=== PATIENT | male | born 1955 | race Caucasian/White ===

== ENCOUNTER 2021-10-19 11:46 | Emergency (ER) | payer BC, SELFPAY ==
--- NOTE | ~2021-10-19 | CT_ITS ---
EXAMINATION: CT abdomen pelvis wo con DATE: 10/19/2021 12:44 INDICATION: Right flank pain TECHNIQUE: Computed tomography (CT) of the abdomen and pelvis was performed without intravenous contr ast. Automated exposure control and iterative reconstruction technique were employed. The dose-length product was 454.21 mGy-cm. COMPARISON: None FINDINGS: Mild dependent atelectasis in the lower lobes, right greater than left. Heart size is normal. No mia cardial or pleural effusion. Small amount of aortic valve calcification. Liver, gallbladder, spleen, pancreas and bilateral adrenal glands are normal. There are a couple small splenules along the anteri or margin of the spleen. Kidneys and ureters are normal with no urolithiasis, hydroureteronephrosis o r perinephric/ureteral stranding. Bladder and prostate are normal. There is moderate colonic divertic ulosis with a sigmoid predominance. There is no adjacent inflammatory change to suggest diverticulit is. Small bowel and appendix are normal. No free intraperitoneal gas or fluid. No pathologically enla rged abdominal or pelvic lymphadenopathy. Mild lumbar dextrocurvature with moderate spondylosis at th e lumbosacral junction. IMPRESSION: 1. No acute intra-abdominal/pelvic process. Specifically normal gallbladder and appendix and no uroli thiasis. 2. Diverticulosis. Reviewed, dictated and finalized at location B. IMPRESSION: 1. No acute intra-abdominal/pelvic process. Specifically normal gallbladder and appendix and no urolithiasis. 2. Diverticulosis.
--- NOTE | ~2021-10-19 | XR_ITS ---
EXAMINATION: XR abdomen/kub 1V DATE: 10/19/2021 13:43 INDICATION: Right flank pain. TECHNIQUE: A supine view of the abdomen was obtained. COMPARISON: CT abdomen and pelvis 10/19/2021 FINDINGS: There are no dilated loops of bowel. There is a small volume of stool in the colon. There i s no urolithiasis. IMPRESSION: 1. Normal bowel gas pattern. Reviewed, dictated and finalized at location A.
[2021-10-19 11:48] VITALS: BP 132/76; PULSE 74; RESP 18; TEMP 36.6; O2SAT 100
[2021-10-19 12:20] LABS: Basophils Percent Auto 0.5 % (0.2-1.2); Eosinophils Absolute Auto 0.1 K/mm3 (0-0.3); Eosinophils Percent Auto 1.1 % (0-4.4); Hematocrit 44.3 % (42.0-52.0); Hemoglobin 15.3 g/dL (14.0-18.0); Immature Granulocyte Absolute 0.02 K/mm3 (0.00-0.031); Immature Granulocyte Percent A 0.3 % (0-0.5); Lymphocytes Absolute Auto 1.49 K/mm3 (0.9-3.2); Lymphocytes Percent Auto 20.3 % (18.3-44.2); Mean Corpuscular HGB Conc 34.5 g/dl (32-36); Mean Corpuscular Hemoglobin 31.9 pg (26-34); Mean Corpuscular Volume 92.3 fl (80-100); Mean Platelet Volume 10.5 fl (7.4-10.4); Monocytes Absolute Auto 0.5 K/mm3 (0.1-0.6); Monocytes Percent Auto 6.9 % (2.6-8.5); Neutrophils Absolute Auto 5.2 K/mm3 (1.3-6.7); Neutrophils Percent Auto 70.9 % (45.5-73.1); Platelet Count Result 203 k/mm3 (150-375); Red Cell Distribution Width 13.1 % (11.5-14.5); White Blood Count 7.4 K/mm3 (4.5-10.0)
[2021-10-19] MEDS: ONDANSETRON INJ 4 MG/2 ML VIAL IV PUSH (12:21)
[2021-10-19] MEDS: LACTATED RINGERS 1,000 ML 999 ML IV CONT (12:21)
[2021-10-19] MEDS: MORPHINE SULFATE (*CRX) 4 MG/ML INJ IV PUSH (12:22)
[2021-10-19 12:27] LABS: Alanine Aminotransferase 21 U/L (6-50); Albumin Level 4.8 g/dL (3.5-5.1); Alkaline Phosphatase 77 U/L (38-126); Anion Gap 7 mmol/L (8-16); Aspartate Amino Transferase 25 U/L (17-59); Bilirubin,Total 0.8 mg/dL (0.2-1.3); Blood Urea Nitrogen 15 mg/dL (9-20); Calcium 9.4 mg/dL (8.4-10.2); Carbon Dioxide 24 mmol/L (22-30); Chloride 105 mmol/L (98-107); Estimated CRCL calculation 79 ml/min; Estimated Glomerular Filt Rate > 60; Glucose 168 mg/dL (65-110); Potassium 3.9 mmol/L (3.4-5.0); Sodium 136 mmol/L (137-145)
--- NOTE | 2021-10-19 12:39 | ED.ABDPAIN ---
HPI - Abdominal Pain General Chief Complaint: Abdominal Pain Stated Complaint: Right sided flank pain - i think I have a stone Time Seen by Provider: 10/19/21 12:02 Source: patient and RN notes reviewed Mode of arrival: ambulatory Limitations: no limitations History of Present Illness HPI narrative: This is a 65 year old male with history of kidney stone who presents for evaluation right flank pain. He developed pain to his right lower back around 830 am this morning. His pain has gradually worsened and it is migrating to his right groin. He took aleve at 9 am but he was still having severe pain. He was riding in his truck and he was unable to sit still and get comfortable. His pain was 10/10 and it is now 8/10. He has associated nausea and vomiting. He reports sweating. He has not had dysuria or hematuria. He had a kidney stone 2 years ago and he states his pain feels similar. MD elicited complaint: flank pain Onset (ago): hour(s) Location: R flank Migration to: RLQ Exacerbating factors: nothing Relieving factors: nothing Associated symptoms: nausea and vomiting Related Data Allergies Allergy/AdvReac Type Severity Reaction Status Date / Time No Known Allergies Allergy Verified 10/19/21 14:22 Review of Systems Review of Systems: All systems reviewed & are unremarkable except as noted in HPI and below Constitutional: Constitutional: Denies chills and Denies fever(s) ENT: Denies epistaxis and Denies sore throat Cardiovascular: Cardiovascular: Denies chest pain Respiratory: Respiratory: Denies chest congestion and Denies cough Gastrointestinal: Gastrointestinal: Reports abdominal pain, Reports nausea and Reports vomiting Genitourinary: Genitourinary: Denies hematuria, Denies oliguria and Denies urinary frequency Musculoskeletal: Musculoskeletal: Reports back pain PMFSH Past Medical History Medical History (Updated 10/19/21 @ 14:22 by Shirley Singer MD) Kidney stone Surgical History Surgical History (Updated 10/19/21 @ 12:42 by Shirley Singer MD) H/O knee surgery H/O shoulder surgery Social History Social History (Updated 10/19/21 @ 12:42 by Shirley Singer MD) Smoking status: Never smoker Exam Const: General: alert Nutritional Appearance: well nourished Orientation/consciousness: patient oriented x3 Limitations: no limitations HENMT: Head: normal to inspection Face and sinus: normal facial exam Throat: posterior oropharynx normal Eyes: Pupils: Equal, round and reactive pupils present EOM: EOMs intact bilaterally Chest: Chest palpation & inspection: normal inspection of the chest Resp: Effort & Inspection: normal respiratory effort Auscultation: clear to auscultation bilaterally Cardio: Rate: regular rate Rhythm: regular rhythm Heart sounds: no murmurs GI: GI Palp: Yes Soft to palpation, No Tenderness to palpation present (GI), No Guarding due to palpation present (GI) and No Rigid due to palpation Auscultation: normal bowel sounds : General: Yes CVA tenderness on the right Back/Spine/Pelvis: Back: CVA tenderness Skin: General skin exam: normal color Rashes: no rashes Wounds: no wounds Neuro: General: patient oriented x3, moves all extremities and CN's II-XI intact bilaterally Psych: Mental Status: mental status grossly normal Course Reevaluation(s) Reevaluation #1: PAtient states he feels better. He was given IVf and pain medications. HE states he feels better. He still has some pain. No stone seen on CT and urine had no blood. PAtient reports some back pain issues. THis pain may be related to his back issues. No rash. Date: 10/19/21 Time: 14:19 Vital Signs Vital signs: Vital Signs Temperature 97.9 F 10/19/21 11:48 Pulse Rate 74 10/19/21 11:48 Respiratory Rate 18 10/19/21 11:48 Blood Pressure 132/76 10/19/21 11:48 Pulse Oximetry 100 10/19/21 11:48 Oxygen Delivery Room Air 10/19/21 11:48 Temperature 97.9 F 07
[2021-10-19 14:03] LABS: Appearance Urine Clear (Clear); Bilirubin Urine Negative (Negative); Blood Urine Negative (Negative); Color Urine Yellow (Yellow); Glucose Urine UA Negative (Negative); Ketones Urine Trace mg/dL (Negative); Leukocyte Esterase Ur Negative LEU/UL (Negative); Nitrate Urine Negative (Negative); Protein Urine 1+ mg/dL (Negative); Specific Grav Ur >= 1.030 (1.001-1.035); Urobilinogen Urine 0.2 mg/dL (<2.0)
[2021-10-19 14:23] LABS: Mucus Urine Few /lpf; RBC Urine 0-2 /hpf (0-2); WBC Urine 0-3 /hpf
[2021-10-19 14:40] LABS: Add Urine Microscopic? YES
== END 2021-10-19 15:02 | disposition home or self-care (01) ==
PROVIDERS: Emergency Medicine; Emergency Provider General Practice
DX: R10.31 Right lower quadrant pain (principal); Z87.442 Personal history of urinary calculi; K57.90 Diverticulosis of intestine, part unspecified, without perforation or abscess without bleeding
CPT/HCPCS: 36415; 74018; 74176; 80053; 81001; 85025; 96361; 96374; 96375; 99284; J2270; J2405; J7120